=== PATIENT | female | born 1945 | race Caucasian/White ===

== ENCOUNTER → 2019-08-28 | Outpatient (CLI) | payer MEDICARE, OTHER, SELFPAY | PROVIDERS: Family Provider Nurse Practitioner; Visit Provider Internal Medicine Critical Care Medicine | DX: J98.4 Other disorders of lung (principal) | CPT/HCPCS: 94762 ==

== ENCOUNTER 2019-09-12 11:30 | Outpatient (CLI) | payer MEDICARE, OTHER, SELFPAY ==
[2019-09-12 13:21] LABS: Erythrocyte Sedimentation Rate 41 mm/hr (0-15)
[2019-09-12 14:43] LABS: C Reactive Protein 2.3 mg/L (0.0-4.9); Creatine Phosphokinase 54 U/L (26-192); Thyroid Stimulating Hormone 1.88 uIU/mL (0.27-4.20)
[2019-09-16 16:17] LABS: Acetylcholine Recept Modulatin 24; Aldolase 7.7 U/L (< OR = 8.1); Anti-Nuclear Antibody Screen NEGATIVE (NEGATIVE); SS A Ro Sjogrens Antibody <1.0 NEG AI (<1.0 NEG); SS-B/LA IGG <1.0 NEG AI (<1.0 NEG)
== END 2019-09-12 11:31 | disposition home or self-care (01) ==
LOC: LAB 11:36
PROVIDERS: Family Provider Nurse Practitioner; PCP Nurse Practitioner; Visit Provider Internal Medicine Critical Care Medicine
DX: J98.8 Other specified respiratory disorders (principal)
CPT/HCPCS: 82085; 82550; 83516; 84443; 85651; 86038; 86140; 86235; 86431

== ENCOUNTER 2020-03-18 07:50 | Outpatient (CLI) | payer MEDICARE, OTHER, SELFPAY ==
--- NOTE | 2020-03-18 08:00 | CT_ITS ---
WS: [id number] HIGH-RESOLUTION CT CHEST TECHNIQUE: Noncontrast high-resolution only CT of the chest with inspiratory expiratory and prone vidhya ging CLINICAL INFORMATION: Restrictive lung disease COMPARISON: None. DLP: 210.[address] scans at [facility] use at least one of these dose optimization techniques: automat ed exposure control; mA and/or kV adjustment per patient size (includes targeted exams where dose is matched to clinical indication); or iterative reconstruction. FINDINGS: Moderate chronic emphysematous changes. Mild fibrosis with interstitial thickening scattered in both lungs. Mild traction bronchiectasis right upper lobe, right middle lobe, and lingula. Significant sub pleural honeycombing. No air trapping on the expiratory imaging. Vascular calcification. Coronary calcification. No visuali zed mediastinal or hilar lymphadenopathy. Left TSA. CT/CT chest wo con [id number] IMPRESSION: 1. Moderate chronic emphysematous changes. 2. Scattered interstitial and parenchymal fibrosis in both lungs. No subpleura l honeycombing. 3. Mild traction bronchiectasis in the right upper lobe, right middle lobe, an d lingula.. 4. Coronary calcification.
--- NOTE | 2020-03-18 09:00 | FL_ITS ---
WS: [id number] INDICATION: Elevation right hemidiaphragm TECHNIQUE: Fluoroscopic guided sniff test Fluoroscopy time 0.5 minutes FINDINGS: Fluoroscopic guidance sniff test. With sniff test there is paradoxical excursion right renee diaphragm. Left hemidiaphragm demonstrates normal excursion. 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
== END 2020-03-18 07:51 | disposition home or self-care (01) ==
PROVIDERS: PCP Nurse Practitioner; Visit Provider Internal Medicine Critical Care Medicine
DX: J98.4 Other disorders of lung (principal); I25.10 Atherosclerotic heart disease of native coronary artery without angina pectoris; J47.9 Bronchiectasis, uncomplicated; J84.10 Pulmonary fibrosis, unspecified; J43.9 Emphysema, unspecified; R41.9 Unspecified symptoms and signs involving cognitive functions and awareness; G30.9 Alzheimer's disease, unspecified; F02.80 Dementia in other diseases classified elsewhere, unspecified severity, without behavioral disturbance, psychotic disturbance, mood disturbance, and anxiety
CPT/HCPCS: 71250; 76000; 96116; 99204

== ENCOUNTER 2020-08-16 11:00 | Outpatient (CLI) | payer MEDICARE, OTHER, SELFPAY ==
--- NOTE | 2020-08-16 11:04 | MM_ITS ---
WS: [id number] BILATERAL SCREENING DIGITAL MAMMOGRAM WITH CAD HISTORY: SCREENING COMPARISON: 03/04/2018 and 09/25/2016 Bilateral CC and MLO views submitted. Computer aided detection analyzed. Breast composition: There are scattered areas of fibroglandular density. No suspicious masses, microc alcifications or architectural distortion. Numerous benign calcifications throughout each breast. MM/[place] [id number] IMPRESSION: BI-RADS: 2-Benign FOLLOW UP: 1 Year Follow-up
== END 2020-08-16 11:01 | disposition home or self-care (01) ==
LOC: RADSHAW 11:03
PROVIDERS: PCP Nurse Practitioner; Visit Provider Nurse Practitioner
DX: Z12.31 Encounter for screening mammogram for malignant neoplasm of breast (principal)
CPT/HCPCS: 77067

== ENCOUNTER → 2021-12-18 10:49 | Outpatient (BNVA) | payer MEDICARE, OTHER, SELFPAY | PROVIDERS: PCP Nurse Practitioner; Visit Provider Internal Medicine Cardiovascular Disease | DX: I25.10 Atherosclerotic heart disease of native coronary artery without angina pectoris (principal); I49.8 Other specified cardiac arrhythmias; I10 Essential (primary) hypertension; E78.2 Mixed hyperlipidemia; G47.33 Obstructive sleep apnea (adult) (pediatric); Z87.891 Personal history of nicotine dependence; Z79.82 Long term (current) use of aspirin | CPT/HCPCS: 99214 ==

== ENCOUNTER → 2022-06-23 13:18 | Outpatient (BNVA) | payer MEDICARE, OTHER, SELFPAY | PROVIDERS: PCP Nurse Practitioner Family; Visit Provider Nurse Practitioner Family | DX: I10 Essential (primary) hypertension (principal); I35.0 Nonrheumatic aortic (valve) stenosis; Z87.891 Personal history of nicotine dependence | CPT/HCPCS: 99213; 99214 ==

== ENCOUNTER 2022-08-11 10:13 | Outpatient (CLI) | payer MEDICARE, OTHER, SELFPAY ==
--- NOTE | 2022-08-11 10:15 | USCV_ITS ---
Ira Gabriel Age: 76 Gender: F : 1945 Exam Date: 08/11/2022 10:55 Ordering Phys: Jennifer Olson Technologist: Judson Monsivais [place] [facility] [place] AO stenosis BP: 140 / 60 HR: 65 Rhythm: Sinus Technical Quality: Adequate MEASUREMENTS (Male / Female) Normal Values 2D ECHO LV Diastolic Diameter PLAX 3.5 cm 4.2 - 5.9 / 3.9 - 5.3 cm LV Systolic Diameter PLAX 1.5 cm IVS Diastolic Thickness 0.7 cm 0.6 - 1.0 / 0.6 - 0.9 cm IVS Systolic Thickness 0.8 cm LVPW Diastolic Thickness 0.9 cm 0.6 - 1.0 / 0.6 - 0.9 cm LVPW Systolic Thickness 1.0 cm LVOT Diameter 2.0 cm LV Ejection Fraction 2D Teich 87.6 % LV Ejection Fraction MOD 2C 74.7 % LV Ejection Fraction 2C AL 75.1 % LA Diameter 3.0 cm LA Width 2.7 cm LA Height 4.1 cm RA Width 3.1 cm RA Height 3.1 cm Aorta at Sinotubular Diameter 2.0 cm IVC Diameter 1.1 cm M-MODE Aortic Annulus Diameter 2.4 cm LA Ao Ratio MM 1.3 MV E Point Septal Separation 0.3 cm DOPPLER AV Peak Velocity 208.0 cm/s LVOT Peak Velocity 109.0 cm/s AV Area Cont Eq vti 1.4 cm squared AV Area Cont Eq pk 1.7 cm squared MV Peak Velocity 126.0 cm/s MV Area PHT 5.0 cm squared Mitral E to A Ratio 0.5 MV E' Velocity 35.0 cm/s Mitral E to MV E' Ratio 6.7 Mitral E to LV E' Lateral Ratio 6.3 Mitral E to LV E' Septal Ratio 7.3 TR Peak Velocity 300.1 cm/s TR Peak Gradient 36.0 mmHg TR Mean Velocity 257.6 cm/s TR Mean Gradient 27.6 mmHg TR Velocity Time Integral 76.9 cm Right Atrial Pressure 3.0 mmHg Pulmonary Artery Systolic Pressu 39.0 mmHg PV Peak Velocity 105.7 cm/s RV Acceleration Time 0.1 s RV Ejection Time 0.3 s RV AcT/ET 0.3 FINDINGS Left Ventricle Normal left ventricular size and systolic function, EF 80 %. No regional wall motion abnormalities. Grade I/IV diastolic dysfunction (abnormal relaxation filling pattern), normal to mildly elevated filling pressures. Right Ventricle The right ventricle is normal in size and function. Right Atrium The right atrium is normal in size. Left Atrium The left atrium is normal in size. Mitral Valve Mild mitral annular calcification. Trace mitral valve regurgitation. Aortic Valve Thickened aortic valve. Trace aortic valve regurgitation. Tricuspid Valve Mild tricuspid valve regurgitation. Pulmonic Valve Trace pulmonary valve regurgitation. Pericardium Normal pericardium without effusion. Aorta Normal ascending aorta dimension. IVC Normal inferior vena cava. CONCLUSIONS Normal left ventricular size and systolic function, EF 80 %. No regional wall motion abnormalities. Grade I/IV diastolic dysfunction (abnormal relaxation filling pattern), normal to mildly elevated filling pressures. Mild mitral annular calcification. Trace mitral valve regurgitation. Thickened aortic valve. Trace aortic valve regurgitation. Mild aortic valve stenosis with a valve area 1.7 cm squared Mild tricuspid valve regurgitation. Trace pulmonary valve regurgitation. There is no pericardial effusion. There are no intracardiac masses. Compared to the study from 03/25/2018, there may not be significant change Dr Yashira Reno MD FAC (Electronically Signed) Final Date: 14 August 2022 17:24 S
== END 2022-08-11 10:14 | disposition home or self-care (01) ==
LOC: RAD 10:14
PROVIDERS: PCP Nurse Practitioner Family; Visit Provider Nurse Practitioner Family
DX: I35.0 Nonrheumatic aortic (valve) stenosis (principal); I07.1 Rheumatic tricuspid insufficiency; I34.0 Nonrheumatic mitral (valve) insufficiency
CPT/HCPCS: 93306

== ENCOUNTER → 2022-12-29 11:34 | Outpatient (BNVA) | payer MEDICARE, OTHER, SELFPAY | PROVIDERS: PCP Nurse Practitioner Family; Visit Provider Internal Medicine Cardiovascular Disease | DX: I25.10 Atherosclerotic heart disease of native coronary artery without angina pectoris (principal); R06.09 Other forms of dyspnea; I35.0 Nonrheumatic aortic (valve) stenosis; E78.2 Mixed hyperlipidemia; I10 Essential (primary) hypertension; G47.33 Obstructive sleep apnea (adult) (pediatric); J98.6 Disorders of diaphragm; G30.9 Alzheimer's disease, unspecified; Z87.891 Personal history of nicotine dependence | CPT/HCPCS: 36415; 80048; 83880; 99214 ==

== ENCOUNTER 2023-03-25 12:18 | Oncology outpatient (recurring) (ONCR) | payer MEDICARE, OTHER, SELFPAY ==
[2023-03-25 13:50] LABS: Basophils % 0.2 %; Eosinophils # 0.2 10^3/uL (0.0-0.8); Eosinophils % 3.2 %; Hematocrit 23.6 % (37.0-47.0); Hemoglobin 7.8 g/dL (11.5-15.3); Lymphocytes # 3.5 10^3/uL (0.8-4.8); Lymphocytes % 52.8 %; Mean Corpuscular HGB Conc 33.1 g/dL (30.0-36.0); Mean Corpuscular Hemoglobin 32.5 pg (28.0-34.0); Mean Corpuscular Volume 98.3 fl (81-99); Mean Platelet Volume 9.6 fL (7.4-10.4); Monocytes # 0.4 10^3/uL (0.2-0.9); Monocytes % 6.4 %; Neutrophils # 2.43 10^3/uL (1.8-7.7); Neutrophils % 37.2 %; Nucleated Red Blood Cells % 0 %; Platelet Count 185 10^3/cmm (130-400); Red Cell Distribution Width 14.4 % (12.1-15.1); White Blood Count 6.5 10^3/uL (4.0-10.0)
[2023-03-25 14:12] LABS: Alanine Aminotransferase 13 U/L (0-33); Albumin Level 4.2 g/dL (3.5-5.2); Alkaline Phosphatase 76 U/L (35-105); Anion Gap 15.8 (5-19); Aspartate Amino Transferase 19 U/L (0-32); Blood Urea Nitrogen 34 mg/dL (8-23); Calcium 9.1 mg/dL (8.5-10.5); Carbon Dioxide 21 mmol/L (22-29); Chloride 105 mmol/L (98-107); Ferritin 104 ng/mL (15-150); Globulin 2.6 g/dL (1.3-4.6); Glucose 84 mg/dL (65-115); Iron 87 ug/dL (37-145); Lactate Dehydrogenase 173 U/L (135-214); Osmolality Calculated 291 mOsm/kg (285-295); Percent Saturation 39.3 % (20-50); Potassium 4.8 mmol/L (3.5-5.1); Sodium 137 mmol/L (136-145); Total Bilirubin 0.2 mg/dL (0.15-1.2); Total Iron Binding Capacity 221 mcg/dl; Total Protein 6.8 g/dL (6.6-8.7); Unsaturated Iron Binding 134 ug/dL (112-347)
[2023-03-25 14:28] LABS: Vitamin B12 655 pg/mL (232-1245)
[2023-03-25 14:47] LABS: Folate Level > 20.0 ng/mL (4.8-37.3)
[2023-03-25 21:28] LABS: LAB Peripheral Smear Sent for Review
== END 2023-04-05 23:59 | disposition home or self-care (01) ==
PROVIDERS: PCP Nurse Practitioner Family; Visit Provider Internal Medicine Medical Oncology
DX: D46.1 Refractory anemia with ring sideroblasts
CPT/HCPCS: 36415; 80053; 82607; 82668; 82728; 82746; 83010; 83540; 83550; 83615; 85025; 99204; 99214

== ENCOUNTER 2023-04-19 11:52 | Oncology outpatient (recurring) (ONCR) | payer MEDICARE, OTHER, SELFPAY ==
[2023-04-19 12:37] VITALS: BP 99/59; PULSE 66; RESP 18; TEMP 36.5; O2SAT 96
[2023-04-21 14:44] LABS: ALBUMIN 4.1 g/dL (3.8-4.8); ALPHA 1 GLOBULIN 0.4 g/dL (0.2-0.3); ALPHA 2 GLOBULIN 0.7 g/dL (0.5-0.9); BETA 1 GLOBULIN 0.5 g/dL (0.4-0.6); BETA 2 GLOBULIN 0.4 g/dL (0.2-0.5); GAMMA GLOBULIN 0.8 g/dL (0.8-1.7); KAPPA LIGHT CHAIN, FREE, SERUM 101.1 mg/L (3.3-19.4); KAPPA/LAMBDA LIGHT CHAINS FREE 0.46 (0.26-1.65); LAMBDA LIGHT CHAIN, FREE, SERU 220.4 mg/L (5.7-26.3); PROTEIN, TOTAL 6.8 g/dL (6.1-8.1)
[2023-05-12 10:19] LABS: Miscellaneous Test See Scanned Lab Rpt
== END 2023-05-06 23:59 | disposition home or self-care (01) ==
LOC: ONCMED 11:52
PROVIDERS: PCP Nurse Practitioner Family; Visit Provider Internal Medicine Medical Oncology
DX: D46.1 Refractory anemia with ring sideroblasts (principal)
CPT/HCPCS: 36415; 83883; 84155; 84165

== ENCOUNTER 2023-05-13 13:48 | Oncology outpatient (recurring) (ONCR) | payer MEDICARE, OTHER, SELFPAY ==
[2023-05-13 13:53] VITALS: BP 135/64; PULSE 66; RESP 18; TEMP 36.6; O2SAT 95
[2023-05-13 14:08] LABS: Basophils % 0.2 %; Eosinophils # 0.2 10^3/uL (0.0-0.8); Eosinophils % 2.6 %; Hematocrit 23.9 % (36-47); Lymphocytes # 3.6 10^3/uL (0.8-4.8); Lymphocytes % 54.3 %; Mean Corpuscular HGB Conc 33.9 g/dL (30-55); Mean Corpuscular Hemoglobin 33.6 pg (27-33); Mean Corpuscular Volume 99.2 fl (85-98); Mean Platelet Volume 8.9 fL (7.4-10.4); Monocytes # 0.4 10^3/uL (0.2-0.9); Monocytes % 6.1 %; Neutrophils # 2.42 10^3/uL (1.8-7.7); Neutrophils % 36.8 %; Nucleated Red Blood Cells % 0 %; Platelet Count 159 10^3/cmm (157-399); Red Blood Count 2.41 10^6/uL (3.85-5.65); Red Cell Distribution Width 14.1 % (12.1-15.1); Reticulocyte % 1.3 % (0.5-2.0); White Blood Count 6.57 10^3/uL (3.29-11.43)
[2023-05-13 14:45] LABS: Alanine Aminotransferase 13 U/L (0-33); Albumin Level 4.1 g/dL (3.5-5.2); Alkaline Phosphatase 76 U/L (35-105); Anion Gap 17.2 (5-19); Aspartate Amino Transferase 18 U/L (0-32); Blood Urea Nitrogen 35 mg/dL (8-23); Calcium 8.5 mg/dL (8.5-10.5); Carbon Dioxide 20 mmol/L (22-29); Chloride 106 mmol/L (98-107); Globulin 2.2 g/dL (1.3-4.6); Glucose 125 mg/dL (65-115); Lactate Dehydrogenase 176 U/L (135-214); Osmolality Calculated 295 mOsm/kg (285-295); Potassium 5.2 mmol/L (3.5-5.1); Sodium 138 mmol/L (136-145); Total Bilirubin 0.2 mg/dL (0.15-1.2); Total Protein 6.3 g/dL (6.6-8.7)
== END 2023-06-05 23:59 | disposition home or self-care (01) ==
PROVIDERS: PCP Nurse Practitioner Family; Visit Provider Internal Medicine Medical Oncology
DX: D46.1 Refractory anemia with ring sideroblasts (principal); D46.9 Myelodysplastic syndrome, unspecified
CPT/HCPCS: 36415; 80053; 83615; 85025; 85045; 99214

== ENCOUNTER → 2023-07-27 11:02 | Outpatient (BNVA) | payer MEDICARE, OTHER, SELFPAY | PROVIDERS: PCP Nurse Practitioner Family; Visit Provider Internal Medicine Cardiovascular Disease | DX: I25.10 Atherosclerotic heart disease of native coronary artery without angina pectoris (principal); G47.33 Obstructive sleep apnea (adult) (pediatric); I35.0 Nonrheumatic aortic (valve) stenosis; E78.2 Mixed hyperlipidemia; I10 Essential (primary) hypertension; I49.8 Other specified cardiac arrhythmias; G30.9 Alzheimer's disease, unspecified; F02.80 Dementia in other diseases classified elsewhere, unspecified severity, without behavioral disturbance, psychotic disturbance, mood disturbance, and anxiety; Z87.891 Personal history of nicotine dependence | CPT/HCPCS: 99214 ==

== ENCOUNTER → 2023-09-23 13:12 | Outpatient (BNVA) | payer MEDICARE, OTHER, SELFPAY | PROVIDERS: PCP Nurse Practitioner Family; Visit Provider Internal Medicine Pulmonary Disease | DX: J98.4 Other disorders of lung (principal); J98.8 Other specified respiratory disorders; J98.6 Disorders of diaphragm; G47.33 Obstructive sleep apnea (adult) (pediatric); Z99.89 Dependence on other enabling machines and devices; Z87.891 Personal history of nicotine dependence | CPT/HCPCS: 99214 ==

== ENCOUNTER → 2024-01-26 12:19 | Outpatient (BNVA) | payer MEDICARE, OTHER, SELFPAY | PROVIDERS: PCP Nurse Practitioner Family; Visit Provider Internal Medicine Cardiovascular Disease | DX: R07.9 Chest pain, unspecified (principal); R00.1 Bradycardia, unspecified; I25.10 Atherosclerotic heart disease of native coronary artery without angina pectoris; I10 Essential (primary) hypertension; I35.0 Nonrheumatic aortic (valve) stenosis; I45.19 Other right bundle-branch block | CPT/HCPCS: 93005; 99214 ==